=== PATIENT | male | born 1985 | race African-American/Black ===

== ENCOUNTER 2017-06-22 16:43 | Observation (INO) | payer SELFPAY ==
[2017-06-22] MEDS ORDERED: Metoprolol Tartrate 5 MG/5 ML VIAL ONE ×3 (17:14→19:34)
[2017-06-22] MEDS ORDERED: Thiamine HCl 200 MG/2 ML VIAL SLOW IVP SCH (17:15)
[2017-06-22 17:16] LABS: #Basophils 0.2 thou/uL (0.0-0.2); #Eosinphils 0.1 thou/uL (0.0-0.7); #Lymphocytes 2.5 thou/uL (1.20-3.40); #Monocytes 0.9 thou/uL (0.11-0.59); #Neutrophils 4.2 thou/uL (1.40-6.50); %Basophils 2.1 % (0.0-1.0); %Eosinophils 1.5 % (0.0-10.0); %Lymphocytes 31.9 % (21.0-51.0); %Monocytes 11.6 % (0.0-10.0); %Neutrophils 52.9 % (42.0-75.0); Hemoglobin 16.7 g/dL (14.0-18.0); Mean Corpuscular HGB CONC 32.8 g/dL (32.0-36.0); Mean Corpuscular Hemoglobin 31.2 pg (27.0-31.0); Mean Corpuscular Volume 95.1 fl (80.0-94.0); Mean Platelet Volume 7.2 fL (7.4-10.4); Platelet Count 284 thou/uL (130-400); RBC Distribution Width 11.9 % (11.5-14.5); Red Blood Cell (RBC) Count 5.36 mill/uL (4.70-6.10); White Blood Cell (WBC) Count 7.8 thou/uL (4.8-10.8)
--- NOTE | 2017-06-22 17:29 | RAD ---
CHEST ONE VIEW: 06/22/17 HISTORY: 32-year-old male with history of chest pain. COMPARISON: 08/30/16. FINDINGS: Monitor leads overlie the chest. Heart size is within normal limits. The lungs are clear of acute pro cess. IMPRESSION: No acute intrathoracic disease. Stable from prior study. POS: [facility]
[2017-06-22 17:37] LABS: ALT (SGPT) 17 U/L (8-55); AST (SGOT) 17 U/L (5-34); Albumin 4.4 g/dL (3.5-5.0); Alkaline Phosphatase 62 U/L (40-150); Anion Gap 13 mmol/L (10-20); BUN (Urea Nitrogen) 14 mg/dL (8.9-20.6); Bilirubin, Total 0.6 mg/dL (0.2-1.2); Calc. Creatinine Clearance 0 mL/min (70-130); Calcium 9.4 mg/dL (7.8-10.44); Carbon Dioxide 25 mmol/L (22-29); Chloride 105 mmol/L (98-107); Estimated GFR-MDRD Greater than 90; Globulin 3.9 g/dL (2.4-3.5); Glucose 99 mg/dL (70-105); Lipase 23 U/L (8-78); Magnesium 2.4 mg/dL (1.6-2.6); Potassium 3.9 mmol/L (3.5-5.1); Protein, Total 8.3 g/dL (6.0-8.3); Sodium 139 mmol/L (136-145)
[2017-06-22 22:10] LABS: Prothrombin Time 13.2 SEC (12.0-14.7)
[2017-06-22 22:11] LABS: PTT 33.6 SEC (22.9-36.1)
[2017-06-22 22:31] LABS: Troponin I 0.011 ng/mL (< 0.028)
[2017-06-22 23:35] VITALS: BMI 37.3
[2017-06-22] MEDS ORDERED: Lorazepam 1 MG TAB PO PRN (23:35)
[2017-06-22] MEDS ORDERED: Ondansetron ODT 4 MG TAB SL PRN (23:36)
[2017-06-22] MEDS ORDERED: Ondansetron HCl/PF 4 MG/2 ML Vial IVP PRN (23:36)
[2017-06-22] MEDS ORDERED: Acetaminophen 325 MG TAB PO PRN (23:36)
[2017-06-22] MEDS ORDERED: Lactated Ringer's 1,000 ML IV SCH (23:45)
[2017-06-23 01:36] LABS: Troponin I 0.012 ng/mL (< 0.028)
--- NOTE | 2017-06-23 03:47 | HP ---
DATE OF ADMISSION: 06/22/2017 ADMITTING PHYSICIAN: Dr. Zain Gutierrez. PRIMARY CARE PHYSICIAN: None. CHIEF COMPLAINT: Dizziness and heart palpitations. HISTORY OF PRESENT ILLNESS: The patient is a 32-year-old gentleman with no prior medical history. T he patient reports that last night he was out with friends, had about 15 beers and about 3-4 shots of alcohol and about 3:00 this morning, he woke up with dizziness and feeling his heart racing. He den ies chest pain, nausea, vomiting, abdominal pain and shortness of breath, fever, or cough. He denies the use of energy drinks, caffeine or any other supplements and this has never happened before. REVIEW OF SYSTEMS: The following complete review of systems was negative, unless otherwise mentioned in the HPI or below: Constitutional: Weight loss or gain, sense of well-being, ability to conduct usual activities, exerc ise tolerance. Skin/Breast: Rash, itching, changes in hair growth or loss, nail changes, breast lumps, tenderness, swelling, nipple discharge. Eyes: Vision, double vision, tearing, blind spots, pain. ENT/Mouth: Headaches (location, time of onset, duration, precipitating factors), vertigo, lightheade dness, injury. Vision, double vision, tearing, blind spots, pain, nose bleeding, colds, obstruction, discharge, dental difficulties, gingival bleeding, dentures, neck stiffness, pain, tenderness, masses in thyroid or other areas. Cardiovascular: Precordial pain, substernal distress, palpitations, syncope, dyspnea on exertion, or thopnea, nocturnal paroxysmal dyspnea, edema, cyanosis, hypertension, heart murmurs, varicosities, ph lebitis, claudication. Respiratory: Pain, shortness of breath, wheezing, stridor, cough, hemoptysis, fever or night sweats. Gastrointestinal: Poor appetite, dysphagia, indigestion, abdominal pain, heartburn, eructation, naus ea, vomiting, hematemesis, jaundice, constipation, or diarrhea, abnormal stools (tracey-colored, tarry, bloody, greasy, foul smelling), flatulence, hemorrhoids, recent changes in bowel habits. Genitourinary: Urgency, frequency, dysuria, nocturia, hematuria, polyuria, oliguria, unusual (or anastasia nge in) color of urine, stones, hesitancy, change in size of stream, dribbling, acute retention or in continence, libido, potency. Musculoskeletal: Pain, swelling, redness or heat of muscles or joints, limitation, of motion, muscul ar weakness, atrophy, cramps. Neurologic/Psychiatric: Convulsions, paralyses, tremor, incoordination, parasthesias, difficulties w ith memory of speech, sensory or motor disturbances, or muscular coordination (ataxia, tremor), emoti onal problems, anxiety, depression, previous psychiatric care, unusual perceptions, hallucinations. Allergy/Immunologic: Skin rash, anemia, bleeding tendency, polydipsia, polyuria, intolerance to heat or cold. PAST MEDICAL HISTORY: None. PAST SURGICAL HISTORY: None. PSYCHIATRIC HISTORY: None. SOCIAL HISTORY: The patient does drink on regular basis. Denies illicit drugs. Denies smoking. He works in sanitation. ALLERGIES: No known drug allergies. FAMILY HISTORY: Reviewed and noncontributory to this case. No one with heart disease as far as the patient knows. PHYSICAL EXAMINATION: VITAL SIGNS: Blood pressure 134/92, pulse 100, respirations 16, satting 98% on room air. GENERAL: He is in no acute distress, pleasant, cooperative, alert and oriented x3. HEENT: Normocephalic, atraumatic. EYES: PERRL. Extraocular muscles intact. ENT: Normal. NECK: Supple, trachea midline. Full range of motion. RESPIRATORY: Clear to auscultation, no wheezing, no rhonchi. CARDIOVASCULAR: Irregularly irregular. ABDOMEN: Nontender, nondistended. EXTREMITIES: No clubbing, cyanosis or edema. NEUROLOGIC: Full range of motion of all extremities. Cranial nerves II-XII grossly intact. LABORATORY AND IMAGES: EKG shows atrial fibrillation with rapid ventricular response. Chest x-ray s hows no infiltrates, no signs of congestive heart failure. Blood chemistry: Sodium 139, potassium 3 .9, chloride 105, CO2 of 25, BUN 14, creatinine 0.91, glucose 99, calcium 9.5, AST 17, ALT 17. Tropo scott I 0.01, albumin 4.4, lipase 23. Coags: PT 13.2, INR 1.0. Hematology: WBC 7.8, hemoglobin 16.7 , hematocrit 50.9, platelets 284. ASSESSMENT: New onset atrial fibrillation with rapid ventricular response. PLAN: The patient will be admitted to telemetry observation as an inpatient. Cardiology will be con sulted. Troponins will be trended. Echo will be ordered. We will control the patient's ventricular response with beta blockers and/or calcium channel blockers and we will administer subcu Lovenox unt il he can be seen and assessed by the Cardiology Service.
[2017-06-23 05:33] LABS: Troponin I Less than 0.010 ng/mL (< 0.028)
[2017-06-23] MEDS ORDERED: Enoxaparin Sodium 40 MG/0.4 ML SYRINGE SC SCH (09:00)
[2017-06-23] MEDS ORDERED: Multivitamins, Adult 10 ML, Thiamine HCl 100 MG, Folic Acid 1 MG in Dextrose 5 %-0.45 %... IV SCH ×4 (09:00)
[2017-06-23 12:50] VITALS: BP 112/72; TEMP 97.5
--- NOTE | 2017-06-23 13:36 | CON ---
DATE OF CONSULTATION: 06/23/2017 REASON FOR CONSULTATION: Atrial fibrillation. HISTORY OF PRESENT ILLNESS: Mr. Vance is a very pleasant 32-year-old gentleman who recently states he binge drank. He drinks 6-8 alcoholic beverages per day. On Monday he doubled the amount. He then states he awoke with heart fluttering and shortness of breath. He was found to be in atrial fib rillation with RVR. He converted back to sinus rhythm and is back to baseline. PAST MEDICAL HISTORY: None. PAST SURGICAL HISTORY: None. SOCIAL HISTORY: No current tobacco use. He drinks 6-8 beers per day. FAMILY HISTORY: Mother has hypertension. CURRENT MEDICATIONS: None. REVIEW OF SYSTEMS: Ten-point review of systems is reviewed and as above, otherwise negative. PHYSICAL EXAMINATION: VITAL SIGNS: Blood pressure 112/72, pulse 72, temperature 97.5. GENERAL: Patient is a pleasant male who is in no acute distress. The patient appears his stated age. NEUROLOGIC: The patient is alert and oriented times 3 with no focal neurologic deficits. HEENT: Sclerae without icterus. Mouth has moist mucous membranes with normal pallor. NECK: No JVD. Carotid upstroke brisk. No bruits bilaterally. LUNGS: Clear to auscultation with unlabored respirations. BACK: No scoliosis or kyphosis. CARDIAC: Regular rate and rhythm with normal S1 and S2. No S3 or S4 noted. No significant rubs, mur murs, thrills, or gallops noted throughout the precordium. PMI is not displaced. There is no parast ernal heave. ABDOMEN: Soft, nontender, nondistended. No peritoneal signs present. No hepatosplenomegaly. No abn ormal striae. EXTREMITIES: 2+ femoral and 2+ dorsalis pedis pulses. No cyanosis, clubbing, or edema. SKIN: No gross abnormalities. PERTINENT LABS: Hemoglobin 16.7. Troponin negative. Echo with Doppler shows LVEF normal. IMPRESSION: 1. Paroxysmal atrial fibrillation. 2. Alcohol abuse. RECOMMENDATIONS: Mr. Vance's symptoms are directly related to alcohol abuse. He increased his alco hol consumption and likely precipitated atrial fibrillation. At this point, I recommend full dose as pirin, low dose beta brian therapy in addition to a PPI versus Pepcid Complete. I would recommend he not stop alcohol abruptly, but try and taper off his alcohol use over the next month. I also erre gordilloly recommended he seek help on stopping his alcohol and join AA. Plan is to follow up with Mr. Lena matson in 1-2 weeks.
--- NOTE | 2017-06-23 21:36 | DIS ---
DATE OF ADMISSION: 06/22/2017 DATE OF DISCHARGE: 06/23/2017 DISCHARGE DIAGNOSES: 1. Paroxysmal atrial fibrillation with current sinus mechanism. 2. Alcohol abuse. CONSULTATIONS: Dr. Johnston with Cardiology Service. PERTINENT LABORATORY AND X-RAY FINDINGS: Basic metabolic profile within normal limits. Lipase 23, t roponin I negative x3. TSH 0.70. CBC showed MCV of 95. Portable chest x-ray dated 06/22/2017 showe d no acute cardiopulmonary process. HOSPITAL COURSE: The patient was observed on the telemetry unit after initially presenting with dizz iness, palpitations with EKG confirmation of atrial fibrillation with rapid ventricular response. Th e patient was initially treated with intravenous normal saline x3 liters and IV metoprolol. The akash ent was also given a banana bag due to concern for alcohol abuse. The patient was evaluated by Cardi ology Service with recommendations for low dose beta brian therapy, full dose aspirin, and avoidanc e of alcohol. The patient converted back to sinus mechanism in less than 12 hours and has remained i n sinus mechanism for the remainder of the hospital course. Overall, the patient did remain clinical ly stable throughout the hospital course and ready for discharge on 06/23/2017. DISCHARGE MEDICATIONS: 1. Metoprolol tartrate 25 mg half a tab p.o. q.12 hours. 2. Enteric coated aspirin 325 mg p.o. daily. FOLLOWUP: The patient will follow up with Dr. Vikram Johnston within 2 weeks of discharge. CONDITION ON DISCHARGE: Stable. ACTIVITY: Ad zoltan. DIET: Regular. CODE STATUS: FULL. DISPOSITION: Home on 06/23/2017.
== END 2017-06-23 17:20 | disposition home or self-care (01) ==
LOC: ERS 16:43 → 2SW 21:53
PROVIDERS: ADMIT Internal Medicine Addiction Medicine; ATTEND Internal Medicine Addiction Medicine
DX: I48.0 Paroxysmal atrial fibrillation (principal); F10.10 Alcohol abuse, uncomplicated; Z82.49 Family history of ischemic heart disease and other diseases of the circulatory system
CPT/HCPCS: 36415; 71045; 80053; 83690; 83735; 84443; 84484; 85025; 85610; 85730; 93005; 93010; 93306; 96361; 96365; 96366; 96372; 96374; 96375; 96376; G0378; J1650; J3411; J7042

== ENCOUNTER 2023-10-10 22:15 | Emergency (ER) | payer SELFPAY ==
[2023-10-11 01:16] LABS: #Basophils 0.05 10x3/uL (0.0-0.2); %Basophils 0.5 % (0.0-1.0); %Eosinophils 1.1 % (0.0-10.0); %Monocytes 9.5 % (0.0-10.0); %Neutrophils 62.7 % (42.0-75.0); Hematocrit 44.9 % (42.0-52.0); Hemoglobin 15.5 g/dL (14.0-18.0); Mean Corpuscular HGB CONC 34.5 g/dL (32.0-36.0); Mean Corpuscular Hemoglobin 31.3 pg (27.0-31.0); Mean Corpuscular Volume 90.5 fL (78.0-98.0); Mean Platelet Volume 9.5 fL (7.4-10.4); Platelet Count 253 10x3/uL (130-400); RBC Distribution Width 12.5 % (11.5-14.5); Red Blood Cell (RBC) Count 4.96 mill/uL (4.70-6.10)
[2023-10-11 01:40] LABS: Troponin I Less than 0.010 ng/mL (< 0.028)
[2023-10-11 01:41] LABS: ALT (SGPT) 19 U/L (8-55); AST (SGOT) 19 U/L (5-34); Albumin 4.1 g/dL (3.5-5.0); Alkaline Phosphatase 58 U/L (40-110); Anion Gap 14 mmol/L (10-20); BUN (Urea Nitrogen) 9 mg/dL (8.9-20.6); Bilirubin, Total 0.7 mg/dL (0.2-1.2); Calc. Creatinine Clearance 0 mL/min (70-130); Calcium 9.6 mg/dL (7.8-10.44); Carbon Dioxide 24 mmol/L (22-29); Chloride 106 mmol/L (98-107); Estimated GFR 111; Globulin 3.8 g/dL (2.4-3.5); Glucose 101 mg/dL (70-105); Lipase 20 U/L (8-78); Magnesium 2.3 mg/dL (1.6-2.6); Potassium 4.2 mmol/L (3.5-5.1); Protein, Total 7.9 g/dL (6.0-8.3); Sodium 140 mmol/L (136-145)
== END 2023-10-11 01:55 | disposition home or self-care (01) ==
LOC: ERS 22:15
DX: R07.89 Other chest pain (principal)
CPT/HCPCS: 36415; 71045; 80053; 83690; 83735; 84484; 85025; 93005